=== PATIENT | male | born 1965 | race African-American/Black ===

== ENCOUNTER 2017-09-08 18:43 | Emergency (ER) | payer MEDICAID, OTHER ==
[~2017-09-08] VITALS: Ht 188 cm; Wt 85.3 kg
[~2017-09-08 18:43] MED LIST: IBUPROFEN600 MG ORAL; NKM; NORCO 5-325 TA1 EACH ORAL; TAMSULOSIN HCL0.4 MG ORAL
[2017-09-08 19:35] VITALS: BP 148/90
[2017-09-08] MEDS ORDERED: AMOXICILLIN500 MG ORAL (19:40)
--- NOTE | 2017-09-08 19:41 | Emergency Room Report ---
History of Present Illness General Chief Complaint: Flu Like Symptoms Source: Patient Present Illness HPI 52 yo male patient presents to ER complaining of facial swelling, ear ache, cough, and MAHER x5days. Patient reports being seen by PCP yesterday for treatment of symptoms; reports begin given Flonase and cough medication. Patient reports taking OTC cough syrup and Tylenol for relief of symptoms. Patient reports symptoms have worsened since then. Patient reports history of dental infection; states symptoms feel similar to then. Patient reports cough is dry; report MAHER began after cough symptoms. Patient denies vision loss, vision changes, hearing loss, drainage from ear. Patient reports history of influenza "a few weeks ago". Patient denies fever, chest pain, SOB, vomiting, diarrhea. Patient denies open wounds in mouth. Allergies: Coded Allergies: No Known Allergies (Unverified , 04/24/16) Patient History Past Medical History: see triage record Reviewed Nursing Documentation: PMH: Agreed, PSxH: Agreed Nursing Documentation-PMH Past Medical History: No History, Except For Review of Systems All Other Systems: negative except mentioned in HPI Physical Exam Vital Signs Date Time Temp Pulse Resp B/P (MAP) Pulse Ox O2 Delivery O2 Flow Rate FiO2 09/08/17 19:09 98.4 74 18 148/90 95 Room Air Sp02 EP Interpretation: reviewed, normal General Appearance: no apparent distress, alert, GCS 15, non-toxic Head: normocephalic, atraumatic, other - no TTP over frontal or maxillary sinuses Eyes: bilateral eye normal inspection, bilateral eye PERRL ENT: hearing grossly normal, normal pharynx, no angioedema, normal voice, TMs + canals normal, uvula midline, moist mucus membranes, nasal congestion, pharyngeal erythema, other - no abscess, no TTP on teeth, no exudates, no open sores, caries noted in tooth #17, no gumline edema or erythema Neck: full range of motion, supple/symm/no masses Respiratory: chest non-tender, lungs clear, normal breath sounds, speaking full sentences Cardiovascular #1: regular rate, rhythm, no edema Musculoskeletal: back normal, gait/station normal, normal range of motion, non- tender, calf tenderness Neurologic: alert, oriented x3, responsive, motor strength/tone normal, sensory intact, speech normal Psychiatric: mood/affect normal Skin: normal color, no rash, warm/dry, palpation normal, other - face: mild swelling of left cheek, no erythema, no TTP, no color change Lymphatic: adenopathy - tonsillar Medical Decision Making PA Attestation Dr. Julien is my supervising Physician whom patient management has been discussed with. Diagnostic Impression: Primary Impression: Left facial swelling ER Course Pt. presents to the ED c/o facial swelling, earache, cough and MAHER. Ddx considered but are not limited to viral URI, otitis media, dental infection , sinusitis, otitis externa, cellulitis, strep throat. Vital signs: are WNL, pt. is afebrile ORDERS: none required at this time, the diagnosis is clinical ED INTERVENTIONS: None required at this time. DISCHARGE: Rx provided for Amoxicillin. At this time pt. is stable for d/c to home. Patient is resting comfortably, in no acute distress, nontoxic appearing. Patient instructed to followup with primary care for further treatment and referral. Patient instructed to followup with dentist for further treatment. Patient instructed to continue to take medications as previously instructed by PCP. Will provide printed patient care instructions, and any necessary prescriptions. Care plan and follow up instructions have been discussed with the patient prior to discharge ER precautions given, patient instructed to follow up with ER for new or worsening of symptoms. Last Vital Signs Date Time Temp Pulse Resp B/P (MAP) Pulse Ox O2 Delivery O2 Flow Rate FiO2 09/08/17 19:09 98.4 74 18 148/90 95 Room Air Disposition: HOME, SELF-CARE Condition: Stable Scripts Amoxicillin* (AMOXIL*) 500 Mg Capsule 500 MG ORAL EVERY 8 HOURS for 7 Days, #21 CAP Prov: Patel Davis 09/08/17 Patient Instructions: Dental Caries, [id number] Additional Instructions: Followup with primary care provider in 3 -5 days. Take medications as directed. Patient questions asked and answered. ER precautions given, patient instructed to return to ER immediately for any new or worsening of symptoms. Patel Davis Sep 08, 2017 19:41
[2017-09-08 20:05] VITALS: BP 148/90
== END 2017-09-08 20:15 | disposition home or self-care (01) ==
LOC: EMR 19:40
DX: R60.0 Localized edema (principal); R05 Cough; H92.09 Otalgia, unspecified ear
CPT/HCPCS: 99283